=== PATIENT | female | born 1990 | race Caucasian/White ===

== ENCOUNTER 2023-02-05 15:21 | Outpatient (CLI) | payer OTHER, SELFPAY ==
--- NOTE | 2023-02-05 15:00 | ECG_ITS ---
Measurements Intervals [place] Rate: 66 P: 41 MI: 127 QRS: 29 QRSD: 77 T: 18 QT: 388 QTc: 407 Interpretive Statements SINUS RHYTHM BASELINE ARTIFACT- I, II, III, AVR, AVL, AVF NORMAL ECG NO PREVIOUS ECG AVAILABLE FOR COMPARISON Electronically Signed On 02-05-2023 16:00:09 CDT by Gale Sweet D.O.
[2023-02-05 15:57] LABS: Hematocrit 37.3 % (37.0-47.0); Hemoglobin 12.5 g/dL (12.0-15.0)
== END 2023-02-05 15:22 | disposition home or self-care (01) ==
LOC: ANHSURGERY 15:24
PROVIDERS: Anesthesiology; Visit Provider Surgery Plastic and Reconstructive Surgery
DX: Z41.1 Encounter for cosmetic surgery (principal); Z01.818 Encounter for other preprocedural examination
CPT/HCPCS: 36415; 85014; 85018; 93005

== ENCOUNTER 2023-02-14 00:10 | Day surgery (SDC) | payer OTHER, SELFPAY ==
[2023-02-05 12:09] VITALS: BMI 24.1
--- NOTE | 2023-02-05 12:14 | PC.NURSE ---
Report to the Outpatient Waiting Room, entrance under the green pavilion located off [facility], at time 6:00 on date 02/14/23. Planned Procedure Time: 7:30. Time changes happen often and if your time is changed the preop area will call you the afternoon before. - You and your visitor will be asked to self-screen and do not enter if you have any COVID symptoms. - Only one visitor is requested with a max of two and NO children visitors are allowed at this time. - The patient visitor may be requested to leave or wait in car when not with patient due to distancing restrictions. - A mask is optional within the hospital at this time. Patients may have clear liquids (water, carbonated beverages, clear teas, apple juice) until 3 hours prior to surgery (4:30) with a maximum of 20 ounces. - No food from midnight until time of surgery Take the following medications with a SIP of water the morning of surgery: N/A DO NOT STOP ANY OF YOUR OTHER PRESCRIPTION MEDICATIONS PRIOR TO SURGERY EXCEPT THE FOLLOWING Medications to discontinue per physician: N/A Date to take last dose: N/A Please no make-up, nail frisian, hairspray, perfume, deodorant, or body powder the day of surgery. No jewelry (including any body piercings) or valuables the day of surgery, leave them at home. Please take a shower or bath the night before, or the morning of, surgery with an antibacterial soap. Wear comfortable, loose fitting clothing. - Jewelry must be removed prior to entering the operating room. Rings and piercings that are not removed may be cut off. - The hospital will not accept responsibility for valuables. - Please leave all valuables, including medications, at home the day of surgery. If you are going home after surgery, a licensed rivet driver must drive you home. - NO public transportation without another adult if you receive anesthesia. - We recommend that an adult stay with you for 24 hours following discharge. - We also recommend that you do not drive, make important decision, drink alcoholic beverages, or take any drugs that were not prescribed by your health care provider for at least 24 hours after your discharge time. Follow any additional instructions given to you from your surgeon. If you or anyone in your household have experienced Covid symptoms in the past week, please notify your surgeon or the nurse liaison at the phone number below for possible testing. Telephone instructions given to SONJA - JV CINTRON and asked if any additional questions and then verbalized understanding. Patient advised to call surgeon office or pre surgery nurse liaison [phone] if any additional questions.
[2023-02-14] VITALS (9 sets, daily range): BP systolic 97–127; BP diastolic 52–80; PULSE 65–92; RESP 16–20; TEMP 35.7–37.2; O2SAT 99–100
[2023-02-14] MEDS: LACTATED RINGERS 1,000 ML 30 ML IV CONT ×2 (06:34→11:40)
[2023-02-14 06:36] LABS: Urine Cotinine NEGATIVE
[2023-02-14] MEDS: SCOPOLAMINE 1.5 MG PATCH TRANSDERM (06:38)
--- NOTE | 2023-02-14 06:56 | WPDHPUPDATE1 ---
History and Physical Update Update Date/Time: 02/14/23 06:56 History and Physical has been reviewed, including an updated exam of the patient. There are NO changes in the patient's condition. Risks, benefits, and alternatives have been discussed and questions answered. Patient agrees to proceed with procedure.
--- NOTE | 2023-02-14 06:56 | W.PM.PROC2 ---
Procedure Note - Detailed Date of Procedure 02/14/23 Pre-op Diagnosis skin laxity Post-op Diagnosis Same Procedure Performed Progressive tension abdominoplasty with suction lipectomy Surgeon Jose Mcknight MD Anesthesia General Findings Tissue removed: 924 grams Lipoaspirate: 1500 cc Description of Procedure They are here today for abdominoplasty. Previously and again today the risks, benefits, alternatives were discussed in extensive detail. I wanted them to be very realistic about the risks involved as well as expectations. We discussed aftercare and what to monitor for. I was very upfront about the risks of wound breakdown leading to loss of skin, open wounds, and need for additional procedures with permanent abdominal deformity. We discussed DVT/PE risks and management. Made sure answered all of their questions to their satisfaction today and consent was obtained. They were marked in the preoperative holding area with their verification. The patient was taken to the operating room placed supine on the operating table. Anesthesia was provided by anesthesiology. A Hall catheter was started. They were prepped and draped in a standard sterile fashion. A surgical time-out was taken. I placed the patient in a flexed position to verify the upper and lower markings would reach. I then placed supine. A thorough abdominal examination was completed. Stab incisions were made and tumescent solution infiltrated. Once adequate time was allowed for hemostasis a 5mm basket cannula was utilized in conjunction with a 3mm multihole cannula to complete suction lipectomy based on S.A.F.E. technique in multiple planes and passes. There were turned to bilateral lateral decubitus position with care taken to protect them for injury during this process. Suction lipectomy continued to result based on pre-operative planning, intra-operative observation, and rolling pinch test which were in full agreement. A 10 blade was used to make the upper incision. I continued dissection down to the level of fascia. Elevated just what was necessary for repair of the diastasis. I then again flexed the bed to verify the upper skin flap would reach the lower markings without tension. Once verified I placed her supine once again and a 10 blade used to make the lower incision. I elevated up to level the umbilicus and left the umbilicus intact on a well-vascularized stalk. The intervening tissue was removed. A 2 mm blunt cannula with 0.5% bupivicaine was injected deep to the fascia bilaterally. I plicated the diastasis recti using 0 PDO stratafix barbed suture. This was in 2 separate layers using 2 separate sutures as well. I repaired around the umbilicus leaving plenty of room for well-vascularized stalk of the umbilicus with 2-0 PDS. I also repaired lateral to the rectus using two layers of 0 PDO stratafix. The patient was flexed and starting from superior to inferior began plication using 2-0 Vicryl to obliterate all space in a standard progressive tension fashion. At the umbilicus I marked out the location of the skin and inset this with 3-0 Monocryl and 4-0 Vicryl. I continued the remainder of the plication using 2-0 Vicryl until I reached my lower planned scar line. I trimmed any excess skin of the upper flap making sure this was a tension-free closure. A single lateral 15 anne drain was placed. I then approximated using a 3 point suture with 2-0 Vicryl followed by 3-0 stratafix ,running subcuticular 4-0 Monocryl, and tissue glue. Fluffs and an abdominal binder were placed. The patient was transferred to the bed in a flexed position. Awoken and taken to the PACU without difficulty. All instrument and sponge counts were correct at the end of the case. Estimated Blood Loss 75 Drains No Packing No Pathology None sent Complications No immediate complications Condition Stable Disposition PACU
--- NOTE | 2023-02-14 07:16 | P.PNAN_ITS ---
Anes - Initial Pre Proc Eval Procedure: Operation Date: 02/14/23 07:30 Proposed Procedures p Abdominoplasty with Liposuction - Jose Mcknight MD Date/Time: 02/14/23 07:16 Surgeon: Jose Mcknight MD Pre Op Diagnosis: skin laxity Patient Data Age: 32 Gender: F Height: 1.65 m Weight: 66.8 kg Last Vital Signs Temp 98.9 F 02/14/23 06:15 Pulse 81 02/14/23 06:15 Resp 18 02/14/23 06:15 BP 111/76 02/14/23 06:15 Pulse Ox 99 02/14/23 06:15 O2 Del Method Room Air 02/14/23 06:15 Allergies Allergy/AdvReac Type Severity Reaction Status Date / Time No Known Allergies Allergy Verified 02/14/23 07:05 Home Medications Medication Instructions Recorded Confirmed Type No Home Medications 02/05/23 02/14/23 History Laboratory Tests 02/14/23 06:14 Cotinine Negative Patient hx anesthesia problems: post op nausea/vomiting Family hx anesthesia problems: none Results Review: All pre-operative results and documents have been reviewed as part of the pre- operative evaluation. [facility] Social History Social History Smoking status: Never smoker Alcohol intake: current Drinks per week: 3 Substance use: never Substance use type: does not use Living arrangements: with family Spiritual care concerns: No Anes - Eval Final PreProcedure Day of Procedure 02/14/23 07:16 Patient weight: normal Heart: regular rate and rhythm Lungs: clear to auscultation Airway: Mallampati scale class II Neurological: alert and oriented Last oral intake: >/= 8 hours ASA classification: I Emergent: no Anesthetic plan: proceed Anesthesia type and monitoring: general ETT and standard monitoring Results Review: All pre-operative results and documents have been reviewed as part of the pre- operative evaluation. Informed Consent: The patient's anesthetic plan and its attendant risks and benefits were discussed with the patient/family/POA. Questions were solicited and answers provided to the satisfaction of the patient/family/POA.
[2023-02-14] MEDS: LACTATED RINGERS IRRIG 1,000 ML, LIDOCAINE HCL 1% LOCAL INJ 50 ML, EPINEPHrine HCL INJ ... INFILTRATE (07:31)
[2023-02-14] MEDS: BUPIVACAINE/EPINEPHRINE 0.5% 50 ML VIAL 60 ML INFILTRATE (07:31)
[2023-02-14] MEDS: ceFAZolin 2 GM/D5W 50 ML 2 GM/50 ML BAG IVPB (07:31)
[2023-02-14] MEDS: TRANEXAMIC ACID 1,000MG/ISO100 1,000 MG/100 ML BAG 200 MG IVPB (07:45)
--- NOTE | 2023-02-14 12:26 | SUR.PHASEI ---
1220 - pt denies presence of pain when asked.
[2023-02-14] MEDS: carisoprodoL (*CRX) 350 MG TABLET PO ×2 (14:00→20:40)
[2023-02-14] MEDS: LACTATED RINGERS 1,000 ML 125 ML IV CONT (14:01)
[2023-02-14] MEDS: KETOROLAC 15 MG/ML VIAL (*BKC) IV PUSH (14:11)
[2023-02-14] MEDS: ENOXAPARIN 40 MG/0.4 ML SYRINGE SUB-Q (17:12)
[2023-02-14] MEDS: oxyCODONE/ACETAMINOPHEN (*CRX) 5-325 MG TABLET PO (19:00)
[2023-02-14] MEDS: DOCUSATE SODIUM 100 MG CAPSULE PO (20:40)
[2023-02-15 00:20] VITALS: BP 110/66; PULSE 80; RESP 18; TEMP 36.6; O2SAT 100; O2SAT 99
[2023-02-15] MEDS: oxyCODONE/ACETAMINOPHEN (*CRX) 5-325 MG TABLET PO ×3 (02:18→10:45)
[2023-02-15] MEDS: carisoprodoL (*CRX) 350 MG TABLET PO ×2 (02:18→07:47)
[2023-02-15 04:20] VITALS: PULSE 78; RESP 18; O2SAT 98
[2023-02-15 04:30] VITALS: BP 125/76; PULSE 78; RESP 18; TEMP 36.8; O2SAT 98
--- NOTE | 2023-02-15 07:26 | WPDPN ---
Progress Note: A&P Assessment and Plan (1) Skin laxity: Code(s): L57.4 - Cutis laxa senilis Status: Acute Assessment and Plan: Doing well after progressive tension abdominoplasty with suction lipectomy. Will discharge home. Follow up. Today we had a lengthy discussion about the care. What to monitor for. Activity limitations. What is an emergency / when to dial 911 and proceed to ER. Call with all other questions or concerns. Will see her back. (2) Localized adiposity: Code(s): E65 - Localized adiposity Status: Acute Subjective Date/time seen: 02/15/23 07:26 Interval history: Doing very well. No f/c. No n/v. No SOB. No CP. No calf tenderness. Tolerating PO. Ambulating. Review of Systems Review of Systems: All systems reviewed & are unremarkable except as noted in HPI and below Exam Narrative: Alert & Oriented NOD Respiratory unlabored Abdomen healing well. No signs of infection. No hematoma. No seroma. Good color / cap refill. No calf tenderness. Negative Angie's Objective Data Vital Signs Vital Signs: Vital Signs - 24 hr 02/14/23 11:40 02/14/23 11:54 02/14/23 12:10 Temperature 35.7 C L Pulse Rate 72 68 87 Respiratory Rate 17 16 18 Blood Pressure 97/52 L 100/57 L 107/65 Pulse Oximetry 100 100 100 Oxygen Delivery Simple Face Mask Simple Face Mask Simple Face Mask Oxygen Flow Rate 7 7 7 02/14/23 12:24 02/14/23 12:37 02/14/23 13:15 Temperature 36.6 C Pulse Rate 92 65 85 Respiratory Rate 20 18 16 Blood Pressure 105/73 105/60 127/80 Pulse Oximetry 100 100 100 Oxygen Delivery Room Air Room Air Oxygen Flow Rate 02/14/23 14:00 02/14/23 19:10 02/14/23 19:10 Temperature 36.7 C Pulse Rate 92 76 76 Respiratory Rate 16 20 20 Blood Pressure 102/63 Pulse Oximetry 100 100 100 Oxygen Delivery Room Air Room Air Oxygen Flow Rate 02/15/23 00:20 Temperature 36.6 C Pulse Rate 80 Respiratory Rate 18 Blood Pressure 110/66 Pulse Oximetry 99 Oxygen Delivery Oxygen Flow Rate Intake/Output Intake/Output: Intake & Output 02/12/23 02/13/23 02/14/2323 23:59 23:59 23:59 23:59 Intake Total 2009 1639 Output Total 8771 7648 Balance 860 -85 Meds/Results Medications: Active Medications Generic Name Dose Route Start Last Admin Trade Name Freq PRN Reason Stop Dose Admin Carisoprodol 350 mg 02/14/23 12:00 02/15/23 02:18 Carisoprodol (*Crx) 350 Mg Tablet PO 350 mg Q6HR JADEN Administration Diazepam 5 mg 02/14/23 11:43 Diazepam (*Crx) 5 Mg Tablet PO TID PRN Anxiety Docusate Sodium 100 mg 02/14/23 21:00 02/14/23 20:40 Docusate Sodium 100 Mg Capsule PO 100 mg Q12HR JADEN Administration Enoxaparin Sodium 40 mg 02/14/23 18:00 02/14/23 17:12 Enoxaparin 40 Mg/0.4 Ml Syringe SUB-Q 40 mg DAILY JADEN Administration Lactated Ringer's 1,000 mls @ 125 mls/hr 02/14/23 11:45 02/14/23 22:15 Lr - Lactated Ringers Iv IV CONT Infused .Q8H JADEN Infusion Ketorolac Tromethamine 15 mg 02/14/23 11:43 02/14/23 14:11 Ketorolac 15 Mg/Ml Vial (*Bkc) IV PUSH 15 mg Q6H PRN Administration Pain Rated 4-6 Morphine Sulfate 2 mg 02/14/23 11:43 Morphine Sulfate (*Crx) 2 Mg/Ml Inj IV PUSH Q2H PRN Pain Ondansetron HCl 4 mg 02/14/23 11:43 Ondansetron Inj 4 Mg/2 Ml Vial IV PUSH Q6H PRN Nausea Oxycodone/Acetaminophen 1 - 2 tablet 02/14/23 11:43 02/15/23 02:18 Oxycodone/Acetaminophen (*Crx) 5-325 Mg Tablet PO 1 tablet Q6H PRN Administration Pain
--- NOTE | 2023-02-15 07:30 | P.DS_ITS ---
DS: Admitting Diagnosis Discharge Date 02/15/2023 Admitting Diagnosis Skin laxity Localized adiposity DS: Discharge Diagnosis Discharge Diagnosis (1) Skin laxity: Code(s): L57.4 - Cutis laxa senilis Status: Acute (2) Localized adiposity: Code(s): E65 - Localized adiposity Status: Acute DS: Summary Hospital Course Hospital Course: Admitted after progressive tension abdominoplasty with suction lipectomy. Has done well. Drain removed. Will discharge home. Time Spent with Patient Time attestation: Total time spent providing and/or coordinating discharge services: Exam Narrative: Alert & Oriented NOD Respiratory unlabored Abdomen healing well. No signs of infection. No hematoma. No seroma. Good color / cap refill. No calf tenderness. Negative Angie's Discharge Plan Discharge Patient Disposition: Home, Self-Care Discharge Instructions: POST OPERATIVE DISCHARGE INSTRUCTIONS JOSE MCKNIGHT M.D. [facility] [address] [facility] [address] [place] [address] * No driving for 24 hours after anesthesia and while you are taking pain medication. * Take all prescribed medication as directed * Diet as tolerated. * No lifting or activity that raises blood pressure for 48 hours. * Regular walking / ambulation. * May shower 24 hours after surgery. Once you shower do not take pain medication before showering as the combination of medication and heat may cause you to feel dizzy or pass out. * No pools or tubs for 2 weeks. * Slowly stand up straight as tolerated. * No straining or lifting more than 20 pounds. * If no bowel movement within 24 hours may use laxative. * Call with any questions or concerns. * Dressing Care: Continue abdominal binder / foam 23 hours per day. * Remove the Scopolamine patch that was placed behind your ear in 72 hours or less. Wash your hands after touching. If you have any questions or concerns, please call the office . If it is after hours you will be directed to the rn transition exchange. Shortness of breath, chest pain, or other medical emergency dial 911 / proceed to the Emergency Room. Stand Alone Forms: General Discharge Instructions Follow-up/Referrals: Jose Mcknight MD [Physician] - 1 Week Discharge Medications: No Action No Home Medications
--- NOTE | 2023-02-15 07:30 | PM.DS ---
DS: Admitting Diagnosis Discharge Date 02/15/2023 Admitting Diagnosis Skin laxity Localized adiposity DS: Discharge Diagnosis Discharge Diagnosis (1) Skin laxity: Code(s): L57.4 - Cutis laxa senilis Status: Acute (2) Localized adiposity: Code(s): E65 - Localized adiposity Status: Acute DS: Summary Hospital Course Hospital Course: Admitted after progressive tension abdominoplasty with suction lipectomy. Has done well. Drain removed. Will discharge home. Time Spent with Patient Time attestation: Total time spent providing and/or coordinating discharge services: Exam Narrative: Alert & Oriented NOD Respiratory unlabored Abdomen healing well. No signs of infection. No hematoma. No seroma. Good color / cap refill. No calf tenderness. Negative Angie's Discharge Plan Discharge Patient Disposition: Home, Self-Care Discharge Instructions: POST OPERATIVE DISCHARGE INSTRUCTIONS JOSE MCKNIGHT M.D. [facility] [address] [place] [address] No driving for 24 hours after anesthesia and while you are taking pain medication. Take all prescribed medication as directed Diet as tolerated. No lifting or activity that raises blood pressure for 48 hours. Regular walking / ambulation. May shower 24 hours after surgery. Once you shower do not take pain medication before showering as the combination of medication and heat may cause you to feel dizzy or pass out. No pools or tubs for 2 weeks. Slowly stand up straight as tolerated. No straining or lifting more than 20 pounds. If no bowel movement within 24 hours may use laxative. Call with any questions or concerns. Dressing Care: Continue abdominal binder / foam 23 hours per day. Remove the Scopolamine patch that was placed behind your ear in 72 hours or less. Wash your hands after touching. If you have any questions or concerns, please call the office . If it is after hours you will be directed to the suspension cord tier exchange. Shortness of breath, chest pain, or other medical emergency dial 911 / proceed to the Emergency Room. Stand Alone Forms: General Discharge Instructions Follow-up/Referrals: Jose Mcknight MD [Physician] - 1 Week Discharge Medications: No Action No Home Medications
[2023-02-15] MEDS: DOCUSATE SODIUM 100 MG CAPSULE PO (07:47)
[2023-02-15 08:00] VITALS: BP 90/65; PULSE 68; RESP 16; TEMP 36.6; O2SAT 100
--- NOTE | 2023-02-15 09:46 | WPDANESPN ---
Anes - Prog Note Post-Op Date/Time: 02/15/23 09:46 Cardiovascular status: normal Respiratory status: normal Airway patency: baseline Mental status: baseline Post-Op hydration status: normal Vital Signs: Last Vital Signs Temp 36.8 C 02/15/23 04:30 Pulse 78 02/15/23 04:30 Resp 18 02/15/23 04:30 BP 125/76 02/15/23 04:30 Pulse Ox 98 02/15/23 04:30 O2 Del Method Room Air 02/15/23 04:20 O2 Flow Rate 7 02/14/23 12:10 Pain Score (VAS): 3 I/O: Intake & Output 02/14/23 02/15/23 02/15/23 23:59 07:59 15:59 Intake Total 1710 1640 Output Total 600 1725 Balance 1110 -85 Post-procedural complaints: none Patient Feedback: Patient satisfied with anesthetic care.
== END 2023-02-15 11:05 | disposition home or self-care (01) ==
LOC: ANHSURGERY 07:04 → ANHOB2 13:04
PROVIDERS: Visit Provider Surgery Plastic and Reconstructive Surgery
PROC: (CPT 15830; principal; 2023-02-14 07:30)
DX: Z41.1 Encounter for cosmetic surgery (principal); L57.4 Cutis laxa senilis; E65 Localized adiposity
CPT/HCPCS: 15830; 15847; 15877; 80307; 99199; A9270; J0171; J0690; J1100; J1170; J1200; J1650; J1885; J2250; J2370; J2405; J2704; J2710; J3010; J7120